=== PATIENT | female | born 1955 | race Caucasian/White ===

== ENCOUNTER 2020-01-03 12:38 | Inpatient (IN) | payer MEDICARE, BC ==
[~2020-01-03] VITALS: Ht 175.3 cm; Wt 115.7 kg
--- NOTE | 2020-01-03 12:41 | NUR ---
PT IS IN ROOM #2A. DR PROCTOR EVALUATED THE PT.
[2020-01-03] MEDS ORDERED: METOPROLOL PO (12:46)
[2020-01-03] MEDS ORDERED: WARF1TAB2 PO ×2 (12:46)
[2020-01-03 13:12] LABS: BASOPHILS # (AUTO) 0.1 K/uL (0.0-8.0); BASOPHILS % (AUTO) 0.6 % (0.0-2.0); EOSINOPHILS # (AUTO) 0.4 K/uL (0.0-0.7); EOSINOPHILS % (AUTO) 4.6 % (0.0-7.0); HEMATOCRIT 43.2 % (31.2-41.9); HEMOGLOBIN 14.4 g/dL (10.9-14.3); LYMPHOCYTES # (AUTO) 1.3 K/uL (20.0-40.0); LYMPHOCYTES % (AUTO) 14.8 % (20.5-51.5); MEAN CORPUSCULAR HEMOGLOBIN 30.6 uug (24.7-32.8); MEAN CORPUSCULAR HGB CONC 33 g/dL (32.3-35.6); MEAN CORPUSCULAR VOLUME 91.9 fL (75.5-95.3); MONOCYTES # (AUTO) 0.7 K/uL (2.0-10.0); MONOCYTES % (AUTO) 8.1 % (0.0-11.0); NEUTROPHILS # (AUTO) 6.4 K/uL (1.8-8.9); NEUTROPHILS % (AUTO) 71.9 % (38.5-71.5); PLATELET COUNT (AUTO) 122 K/uL (179-408); WHITE BLOOD COUNT (AUTO) 8.9 K/uL (3.8-11.8)
[2020-01-03 13:20] LABS: CREATININE 0.8 mg/dL (0.6-1.3); POTASSIUM 3.7 mmol/L (3.5-5.1)
[2020-01-03] MEDS ORDERED: ACETAMINOPHEN 325 MG TABLET PO PRN (15:00)
[2020-01-03] MEDS ORDERED: Z GUARD REMEDY PASTE 57 GM TUBE TOP PRN (15:00)
[2020-01-03] MEDS ORDERED: ONDANSETRON 4 MG/2 ML VIAL IV PRN (15:00)
[2020-01-03] MEDS ORDERED: HEPARIN/D5W 25000 UNITS/500 ML BAG IV ONE (15:00)
--- NOTE | 2020-01-03 16:00 | NUR ---
admitted from home via er c/o pin BLE, admitting DX DVT BLE, alert and oriented x3, c/o mild pain4/10 BLE. bedrest maintained . admission assessment initiated. Dr Ricci in and examined patient with orders.
--- NOTE | 2020-01-03 16:01 | NUR ---
REPORT WAS GIVEN TO UTILITY PIPE LAYER. PT WAS TRANSFERED TO TELEMETRY ROOM #304.
[2020-01-03 16:41] VITALS: BP 150/80
--- NOTE | 2020-01-03 17:00 | NUR ---
HEPARIN DRIP FOR DVT STARTED PER PROTOCOL
[2020-01-03] MEDS: HEPARIN/D5W DRIP 500 ML IV PRN (17:05)
--- NOTE | 2020-01-03 19:30 | NUR ---
Received patient lying in bed. AAOx3. No s/s of acute distress noted at this time. Pt is on RA. Denies SOB, pain, and discomfort at this time. Right FA IV patent and intact, infusing heparin drip per protocol. Safety measures in place and will continue to monitor.
[2020-01-03 20:20] VITALS: BP 144/67
[2020-01-03] MEDS: HYDROCODONE/APAP 5-325MG TABLET PO PRN (21:55)
--- NOTE | 2020-01-03 23:55 | NUR ---
aPTT 53.3. Per sliding scale no change to heparin drip rate. Continues at 1800 units/hr. Redraw aPTT at 0600 per protocol. Will continue to monitor.
[2020-01-04 01:02] VITALS: BP 130/61
[2020-01-04] MEDS: ZOLPIDEM 5 MG TABLET PO PRN ×2 (02:56→22:09)
[2020-01-04 05:16] VITALS: BP 136/64
[2020-01-04 06:03] LABS: BASOPHILS # (AUTO) 0.1 K/uL (0.0-8.0); BASOPHILS % (AUTO) 0.9 % (0.0-2.0); EOSINOPHILS # (AUTO) 0.5 K/uL (0.0-0.7); EOSINOPHILS % (AUTO) 7.1 % (0.0-7.0); HEMATOCRIT 38.9 % (31.2-41.9); HEMOGLOBIN 12.8 g/dL (10.9-14.3); LYMPHOCYTES # (AUTO) 1.4 K/uL (20.0-40.0); LYMPHOCYTES % (AUTO) 19.5 % (20.5-51.5); MEAN CORPUSCULAR HEMOGLOBIN 30.3 uug (24.7-32.8); MEAN CORPUSCULAR HGB CONC 33 g/dL (32.3-35.6); MEAN CORPUSCULAR VOLUME 91.9 fL (75.5-95.3); MONOCYTES # (AUTO) 0.7 K/uL (2.0-10.0); MONOCYTES % (AUTO) 9.2 % (0.0-11.0); NEUTROPHILS # (AUTO) 4.7 K/uL (1.8-8.9); NEUTROPHILS % (AUTO) 63.3 % (38.5-71.5); PLATELET COUNT (AUTO) 119 K/uL (179-408); RED BLOOD CELL COUNT(AUTO) 4.23 MIL/uL (3.63-4.92); WHITE BLOOD COUNT (AUTO) 7.4 K/uL (3.8-11.8)
[2020-01-04] MEDS: PANTOPRAZOLE SODIUM 40 MG TABLET.DR PO SCH (06:13)
[2020-01-04 06:21] LABS: CREATININE 0.8 mg/dL (0.6-1.3); MAGNESIUM 2.1 mg/dL (1.8-2.4); PHOSPHOROUS 3.8 mg/dL (2.5-4.9); POTASSIUM 3.8 mmol/L (3.5-5.1)
[2020-01-04 06:27] LABS: THYROID STIMULATING HORMONE 1.304 mIU/mL (0.358-3.740)
--- NOTE | 2020-01-04 06:36 | NUR ---
aPTT 95.3. Per sliding scale hold infusion for 1 hour started at 0636. Will resume at 0736 and per scale reduce rate by 300 units/h. New rate when resumed will be 1500 units/hour. Conversion of 30ml/h. Will endorse to oncoming staff.
[2020-01-04] MEDS: HEPARIN/D5W DRIP 500 ML IV PRN (08:57)
[2020-01-04 12:51] VITALS: BP 155/66
[2020-01-04 16:00] VITALS: BP 115/87
[2020-01-04] MEDS: HYDROCODONE/APAP 5-325MG TABLET PO PRN ×2 (17:26→22:07)
[2020-01-04 20:09] VITALS: BP 136/67
[2020-01-05 00:21] VITALS: BP 146/68
[2020-01-05] MEDS: HEPARIN/D5W DRIP 500 ML IV PRN ×2 (02:11→22:06)
[2020-01-05 04:50] VITALS: BP 106/55
[2020-01-05] MEDS: PANTOPRAZOLE SODIUM 40 MG TABLET.DR PO SCH (06:08)
[2020-01-05 06:22] LABS: BASOPHILS # (AUTO) 0.1 K/uL (0.0-8.0); EOSINOPHILS # (AUTO) 0.6 K/uL (0.0-0.7); EOSINOPHILS % (AUTO) 8.4 % (0.0-7.0); HEMATOCRIT 38.2 % (31.2-41.9); HEMOGLOBIN 12.6 g/dL (10.9-14.3); LYMPHOCYTES # (AUTO) 1.6 K/uL (20.0-40.0); LYMPHOCYTES % (AUTO) 22.1 % (20.5-51.5); MEAN CORPUSCULAR HEMOGLOBIN 30.4 uug (24.7-32.8); MEAN CORPUSCULAR HGB CONC 33 g/dL (32.3-35.6); MONOCYTES # (AUTO) 0.7 K/uL (2.0-10.0); MONOCYTES % (AUTO) 10.3 % (0.0-11.0); NEUTROPHILS # (AUTO) 4.1 K/uL (1.8-8.9); NEUTROPHILS % (AUTO) 58.2 % (38.5-71.5); PLATELET COUNT (AUTO) 147 K/uL (179-408); RED BLOOD CELL COUNT(AUTO) 4.15 MIL/uL (3.63-4.92); WHITE BLOOD COUNT (AUTO) 7.1 K/uL (3.8-11.8)
[2020-01-05 06:39] LABS: CREATININE 0.8 mg/dL (0.6-1.3); MAGNESIUM 2.2 mg/dL (1.8-2.4); PHOSPHOROUS 3.9 mg/dL (2.5-4.9); POTASSIUM 4.3 mmol/L (3.5-5.1)
--- NOTE | 2020-01-05 08:00 | NUR ---
AWAKE ALERT AND ORIENTED X3 NO SS OF ACUTE PAIN OR DISTRESS. SR ON MONITOR. CONTINUE WITH HEPARIN DRIP PER PROTOCOL
[2020-01-05 12:00] VITALS: BP 134/67
--- NOTE | 2020-01-05 13:00 | NUR ---
DR CHRIS AND DR RUSH IN FOR FOLLOW-UP SEE NOTES
--- NOTE | 2020-01-05 14:00 | NUR ---
PTT 53.8 NO CHANGE IN HEPARIN DRIP PER PROTOCOL
[2020-01-05 16:00] VITALS: BP 131/58
[2020-01-05] MEDS: WARFARIN SODIUM 5 MG TABLET PO SCH (16:36)
[2020-01-05] MEDS ORDERED: IV NORMAL SALINE 250 ML IV ONE (17:43)
[2020-01-05] MEDS ORDERED: IOHEXOL 300MG/ML 100 ML INFUS..BTL ONE (17:43)
--- NOTE | 2020-01-05 19:30 | NUR ---
RECEIVED PT AWAKE, ALERT AND ORIENTEDX4. PT IN NO ACUTE DISTRESS. IV INTACT. HEPARIN DRIP ONGOING. SAFETY AND COMFORT PROVIDED. WILL CONTINUE TO MONITOR.
[2020-01-05 20:00] VITALS: BP 149/76
[2020-01-05] MEDS: MAGNESIUM HYDROXIDE 30 ML LIQUID UDC PO PRN (21:04)
--- NOTE | 2020-01-05 23:00 | NUR ---
PT REQUESTED MEDICATION TO PROMOTE BOWEL MOVEMENT AND PREVENT CONSTIPATION. MILK OF MAGNESIA GIVEN AT 2104H.PT TOLERATED IT WELL.PT GIVEN PRUNE JUICE TO HELP PREVENT CONSTIPATION. WILL CONTINUE TO MONITOR.
[2020-01-06] VITALS: BP 135/54
[2020-01-06] MEDS: ZOLPIDEM 5 MG TABLET PO PRN (00:13)
--- NOTE | 2020-01-06 01:49 | NUR ---
PT REQUESTED FOR SLEEP MEDICATION.AMBIEN GIVEN AT 0013H . AFTER AN HOUR PT OBSERVED SLEEPING. WILL CONTINUE TO MONITOR,.
[2020-01-06 04:00] VITALS: BP 109/56
[2020-01-06] MEDS: PANTOPRAZOLE SODIUM 40 MG TABLET.DR PO SCH (06:05)
--- NOTE | 2020-01-06 06:36 | NUR ---
PT SLEPT INTERMITTENTLY. PT IN NO ACUTE DISTRESS. VITAL SIGNS STABLE. PRESCRIBED MEDICATION GIVEN AND PT TOLERATED IT WELL. SAFETY AND COMFORT PROVIDED. ALL NEEDS ARE MET. WILL ENDORSE TO INCOMING NURSE FOR CONTINUITY OF CARE.
[2020-01-06 06:39] LABS: BASOPHILS % (AUTO) 0.7 % (0.0-2.0); EOSINOPHILS # (AUTO) 0.5 K/uL (0.0-0.7); EOSINOPHILS % (AUTO) 7.3 % (0.0-7.0); HEMATOCRIT 38.8 % (31.2-41.9); HEMOGLOBIN 12.8 g/dL (10.9-14.3); LYMPHOCYTES % (AUTO) 13.9 % (20.5-51.5); MEAN CORPUSCULAR HEMOGLOBIN 30.3 uug (24.7-32.8); MEAN CORPUSCULAR HGB CONC 33 g/dL (32.3-35.6); MEAN CORPUSCULAR VOLUME 91.9 fL (75.5-95.3); MONOCYTES # (AUTO) 0.7 K/uL (2.0-10.0); MONOCYTES % (AUTO) 9.1 % (0.0-11.0); PLATELET COUNT (AUTO) 165 K/uL (179-408); RED BLOOD CELL COUNT(AUTO) 4.23 MIL/uL (3.63-4.92); WHITE BLOOD COUNT (AUTO) 7.3 K/uL (3.8-11.8)
[2020-01-06 07:22] LABS: BILIRUBIN,DIRECT 0.1 mg/dL (0.0-0.2); BILIRUBIN,TOTAL 0.5 mg/dL (0.2-1.0); CREATININE 0.7 mg/dL (0.6-1.3); MAGNESIUM 2.2 mg/dL (1.8-2.4); PHOSPHOROUS 3.2 mg/dL (2.5-4.9)
--- NOTE | 2020-01-06 07:40 | NUR ---
RECEIVED RESULTS OF PTT 54.4 NO CHANGE IN RATE WILL CONTINUE SAME RATE AND WILL REPEAT PTT IN AM PATIENT IS ALERT AND ORIENTED DENIES DISCOMFORTS CALL LIGHTS AND PERSONAL BELONGINGS ARE WITHIN EASY REACH MADE COMFORTABLE WILL CONTINUE TO OBSERVE.
[2020-01-06 11:30] VITALS: BP 134/73
--- NOTE | 2020-01-06 13:50 | NUR ---
PATIENT SEEN AND EXAMINED BY REJI TEAM TRUCK DRIVER WITH ORDERS THE PLAN IS THAT PATIENT WILL BE SEEN BY DR QURESHI ONCOLOGY/FOUNTAIN VENDING MECHANIC RELATED TO THE RESULT OF HER CT PELVIS SCAN PATIENT AWARE AND EXPRESSED UNDERSTANDING REMAIN ON HEPARIN DRIP ORDERED WITH NO S/S OF BLEEDING AT THIS TIME.
--- NOTE | 2020-01-06 15:00 | NUR ---
PATIENT IS ANXIOUS WANDERING WHEN DR QURESHI WILL BE HERE TO SEE HER SO I CALLED DR QURESHI AND LEFT HIM A MESSAGE
--- NOTE | 2020-01-06 15:33 | NUR ---
CALL RECEIVED FROM DR QURESHI STATED WILL BE HERE TONIGHT TO SEE PATIENT AND DISCUSS PLAN OF CARE PATIENT NOTIFIED.
[2020-01-06 15:36] VITALS: BP 116/70
[2020-01-06] MEDS ORDERED: LORAZEPAM 1 MG TABLET PO PRN (15:45)
[2020-01-06] MEDS: WARFARIN SODIUM 5 MG TABLET PO SCH (17:22)
[2020-01-06] MEDS: HEPARIN/D5W DRIP 500 ML IV PRN (17:22)
--- NOTE | 2020-01-06 17:40 | NUR ---
COUMADIN 5 MG GIVEN ORDERED PATIENT REMAIN ON HEPARIN DRIP AT 1300 UNITS PER HOUR WITH NO S/S OF BLEEDING QAT THIS TIME.
--- NOTE | 2020-01-06 18:45 | NUR ---
DR QURESHI HERE TO SEE PATIENT WITH NO NEW ORDERS AT THIS TIME SHE SPOKE WITH PATIENT AT LENGTH AND EXPLAINED THE PLAN OF CARE TO THE PATIENT AND SHE EXPLAINED UNDERSTANDING.
--- NOTE | 2020-01-06 19:30 | NUR ---
Received pt lying in bed AAOx4. No s/s of acute distress noted. Pt denies SOB and pain. patient monitor on. Right hand IV patent and intact. aPTT 54.4, Heparin drip infusing at 1300 units/hr. Redraw lab levels in the morning and will adjust rate accordingly. Bed locked and safety measures in place. will continue to monitor.
[2020-01-06] MEDS: MAGNESIUM HYDROXIDE 30 ML LIQUID UDC PO PRN (20:43)
[2020-01-06 22:00] VITALS: BP 156/85
[2020-01-07] VITALS: BP 132/72
[2020-01-07] MEDS: ZOLPIDEM 5 MG TABLET PO PRN (02:03)
[2020-01-07 04:00] VITALS: BP 132/76
[2020-01-07] MEDS: PANTOPRAZOLE SODIUM 40 MG TABLET.DR PO SCH (06:18)
[2020-01-07 07:22] LABS: CREATININE 0.8 mg/dL (0.6-1.3); POTASSIUM 4.1 mmol/L (3.5-5.1)
[2020-01-07 07:45] LABS: BASOPHILS % (AUTO) 0.6 % (0.0-2.0); EOSINOPHILS # (AUTO) 0.6 K/uL (0.0-0.7); EOSINOPHILS % (AUTO) 7.9 % (0.0-7.0); HEMATOCRIT 38.7 % (31.2-41.9); HEMOGLOBIN 12.9 g/dL (10.9-14.3); LYMPHOCYTES # (AUTO) 1.5 K/uL (20.0-40.0); LYMPHOCYTES % (AUTO) 20.5 % (20.5-51.5); MEAN CORPUSCULAR HEMOGLOBIN 30.6 uug (24.7-32.8); MEAN CORPUSCULAR HGB CONC 33 g/dL (32.3-35.6); MEAN CORPUSCULAR VOLUME 92.1 fL (75.5-95.3); MONOCYTES # (AUTO) 0.7 K/uL (2.0-10.0); MONOCYTES % (AUTO) 9.9 % (0.0-11.0); NEUTROPHILS # (AUTO) 4.4 K/uL (1.8-8.9); NEUTROPHILS % (AUTO) 61.1 % (38.5-71.5); PLATELET COUNT (AUTO) 196 K/uL (179-408); WHITE BLOOD COUNT (AUTO) 7.1 K/uL (3.8-11.8)
[2020-01-07 09:10] LABS: *IMMUNOGLOBULIN G, SERUM 1559 mg/dL (586-1602); IMMUNOGLOBULIN A, SERUM 187 mg/dL (87-352); IMMUNOGLOBULIN M, SERUM 165 mg/dL (26-217)
[2020-01-07 11:58] VITALS: BP 139/74
[2020-01-07 12:06] LABS: *ANTI-SCLERODERMA-70 AB <0.2 AI (0.0-0.9); *SJOGREN'S ANTI-SS-A <0.2 AI (0.0-0.9); *SJOGREN'S ANTI-SS-B <0.2 AI (0.0-0.9); *SMITH ANTIBODIES <0.2 AI (0.0-0.9); ANTI-DNA(DS) AB, QN 6 IU/mL (0-9)
[2020-01-07] MEDS: HEPARIN/D5W DRIP 500 ML IV PRN (12:44)
[2020-01-07 16:04] VITALS: BP 134/73
--- NOTE | 2020-01-07 18:00 | NUR ---
Pt stable throughout shift. No signs of bleeding. No acute distress
--- NOTE | 2020-01-07 20:00 | NUR ---
Received patient awake and alert in bed. A/Ox4. PTT 61.2 Heparin drip is at 1300units/hr, there has been no change in rate, PTT will be checked again in AM. No s/s of active bleeding noted. IV on the right hand is intact no s/s of infiltration noted. BLE edema noted right>left. Sinus Rhythm on the monitor. Patient is anxious about doing a biopsy and says she was told she might be doing it as outpatient, but she wants it to be done while here in the hospital. Explained to patient that I understand her concerns and that I will endorse to the morning shift. Patient understood and was grateful.
[2020-01-07 20:04] VITALS: BP 149/73
[2020-01-08 00:31] VITALS: BP 149/74
[2020-01-08 04:38] VITALS: BP 129/70
[2020-01-08 05:02] VITALS: BP 136/72
[2020-01-08 05:09] LABS: A/G RATIO 0.8 (0.7-1.7); ALBUMIN 3.2 g/dL (2.9-4.4); ALPHA-1-GLOBULIN 0.4 g/dL (0.0-0.4); BETA GLOBULIN 0.9 g/dL (0.7-1.3); GAMMA GLOBULIN 1.6 g/dL (0.4-1.8); GLOBULIN, TOTAL 3.9 g/dL (2.2-3.9); M-SPIKE 0.2 g/dL (Not Observed)
[2020-01-08] MEDS: PANTOPRAZOLE SODIUM 40 MG TABLET.DR PO SCH (06:15)
[2020-01-08] MEDS: HEPARIN/D5W DRIP 500 ML IV PRN (07:27)
[2020-01-08 07:32] LABS: BASOPHILS # (AUTO) 0.1 K/uL (0.0-8.0); BASOPHILS % (AUTO) 0.9 % (0.0-2.0); EOSINOPHILS # (AUTO) 0.6 K/uL (0.0-0.7); EOSINOPHILS % (AUTO) 8.1 % (0.0-7.0); HEMATOCRIT 40.2 % (31.2-41.9); HEMOGLOBIN 13.2 g/dL (10.9-14.3); LYMPHOCYTES # (AUTO) 1.5 K/uL (20.0-40.0); LYMPHOCYTES % (AUTO) 20.9 % (20.5-51.5); MEAN CORPUSCULAR HEMOGLOBIN 30.1 uug (24.7-32.8); MEAN CORPUSCULAR HGB CONC 33 g/dL (32.3-35.6); MONOCYTES # (AUTO) 0.6 K/uL (2.0-10.0); MONOCYTES % (AUTO) 9.2 % (0.0-11.0); NEUTROPHILS # (AUTO) 4.3 K/uL (1.8-8.9); NEUTROPHILS % (AUTO) 60.9 % (38.5-71.5); PLATELET COUNT (AUTO) 211 K/uL (179-408); RED BLOOD CELL COUNT(AUTO) 4.37 MIL/uL (3.63-4.92)
[2020-01-08 07:33] LABS: CREATININE 0.8 mg/dL (0.6-1.3); POTASSIUM 4.1 mmol/L (3.5-5.1)
--- NOTE | 2020-01-08 08:00 | NUR ---
Patient is AOx3. No s/s of pain or distress. occasional non-productive cough. No SOB. Patient on continuous heparin drip per protocol as planned. No signs of bleeding present. Pt is worried about results of CT scan pelvis and abdomin. Will f/u. SR on monitor.
--- NOTE | 2020-01-08 10:00 | NUR ---
Dr. Egan and Toni SENIOR CLINICAL DATA ANALYST spoke with pt and discussed plan of care. Possible DC in morning and planned biopsy as outpatient.
--- NOTE | 2020-01-08 11:20 | NUR ---
PTT 50.6 continue heparin drip per protocol.
[2020-01-08 12:00] VITALS: BP 144/71
[2020-01-08 16:00] VITALS: BP 128/70
[2020-01-08] MEDS: WARFARIN SODIUM 5 MG TABLET PO SCH (17:43)
--- NOTE | 2020-01-08 17:58 | NUR ---
continue heparin drip per protocol. Dr Morris called and spoke to pt. See Dr. Reece notes.
[2020-01-08 20:00] VITALS: BP 132/75
[2020-01-08] MEDS: MAGNESIUM HYDROXIDE 30 ML LIQUID UDC PO PRN (22:30)
[2020-01-08] MEDS: ZOLPIDEM 5 MG TABLET PO PRN (22:30)
[2020-01-09 00:04] VITALS: BP 132/78
[2020-01-09] MEDS: HEPARIN/D5W DRIP 500 ML IV PRN (03:05)
--- NOTE | 2020-01-09 03:05 | NUR ---
came back from break and night charge assisted in restarting heparin. heparin running at 26mls/hr Addendum: 01/09/20 at 0538 by JUAN POTTER RN unable to fix issue.
[2020-01-09 04:08] VITALS: BP 135/66
[2020-01-09 04:16] VITALS: BP 119/53
[2020-01-09] MEDS: PANTOPRAZOLE SODIUM 40 MG TABLET.DR PO SCH (06:10)
[2020-01-09 06:38] LABS: BASOPHILS % (AUTO) 0.7 % (0.0-2.0); EOSINOPHILS # (AUTO) 0.6 K/uL (0.0-0.7); HEMATOCRIT 40.5 % (31.2-41.9); HEMOGLOBIN 13.5 g/dL (10.9-14.3); LYMPHOCYTES # (AUTO) 1.8 K/uL (20.0-40.0); LYMPHOCYTES % (AUTO) 25.8 % (20.5-51.5); MEAN CORPUSCULAR HEMOGLOBIN 30.6 uug (24.7-32.8); MEAN CORPUSCULAR HGB CONC 33 g/dL (32.3-35.6); MEAN CORPUSCULAR VOLUME 92.1 fL (75.5-95.3); MONOCYTES # (AUTO) 0.7 K/uL (2.0-10.0); NEUTROPHILS # (AUTO) 3.8 K/uL (1.8-8.9); NEUTROPHILS % (AUTO) 55.5 % (38.5-71.5); PLATELET COUNT (AUTO) 229 K/uL (179-408); WHITE BLOOD COUNT (AUTO) 6.9 K/uL (3.8-11.8)
[2020-01-09 07:02] LABS: CREATININE 0.8 mg/dL (0.6-1.3); POTASSIUM 4.3 mmol/L (3.5-5.1)
[2020-01-09 08:00] VITALS: BP 139/69
--- NOTE | 2020-01-09 08:00 | NUR ---
Received patient on bed, awake, alert and verbally responsive. no signs of distress noted. no SOB. Afebrile. no complain of Pain or discomfort. Heparin 1300units/hr infusing on Right hand, No signs of infiltration noted. kept clean and comfortable. Patient with PT 19.5 and PTT 57.1 , No change in rate per protocol and continue heparin 1300units/hr = 26cc/hr and PT/PTT 01/10/2020 at 0600. Will continue to monitor.
[2020-01-09 12:06] LABS: BETA-2-GLYCOPROTEIN IGG/M/A < 9 (0-25)
[2020-01-09] MEDS ORDERED: ENOXAPARIN SODIUM 120 MG/0.8 ML SYRINGE SQ SCH (13:00)
[2020-01-09 14:39] VITALS: BP 143/77
[2020-01-09] MEDS ORDERED: ZOLP5TAB2 PO (15:24)
[2020-01-09] MEDS ORDERED: ENOX40DI SQ (15:24)
[2020-01-09] MEDS ORDERED: LORA-259 PO (15:24)
[2020-01-09] MEDS: WARFARIN SODIUM 5 MG TABLET PO SCH (17:05)
--- NOTE | 2020-01-09 18:36 | NUR ---
Patient is awake, alert and verbally responsive. No signs of distress noted. No SOB. No complain of pain or discomfort. Patient with order to Discharge Home today. All discharge Instructions given to patient and verbalized Understanding. Patient teaching on how to give Lovenox injections given and verbalized understanding. All belongings was signed and sent with patient. removed IV site, cardiac monitor technician and wrist band. Patient was picked up by friend via private car in stable condition.
[2020-01-09] MEDS ORDERED: ENOXAPARIN SODIUM 120 MG/0.8 ML SYRINGE SQ ONE (19:00)
[2020-01-10 11:06] LABS: PTT-LA 50.6 sec (0.0-51.9); THROMBIN NEUTRALIZATION 20.2 sec (0.0-23.0); THROMBIN TIME MIX 43.4 sec (0.0-23.0)
[2020-01-10 13:07] LABS: LUPUS INTERPRETATION Comment: (.)
== END 2020-01-09 18:25 | disposition home health service (06) | DRG 300 ==
LOC: ER 12:54 → TELE3 15:22
PROVIDERS: ADMIT Student in an Organized Health Care Education/Training Program; ATTEND Nurse Practitioner Acute Care
DX: I82.433 Acute embolism and thrombosis of popliteal vein, bilateral (principal); D68.69 Other thrombophilia; E44.0 Moderate protein-calorie malnutrition; C78.6 Secondary malignant neoplasm of retroperitoneum and peritoneum; I82.412 Acute embolism and thrombosis of left femoral vein; I82.441 Acute embolism and thrombosis of right tibial vein; I48.91 Unspecified atrial fibrillation; Z95.2 Presence of prosthetic heart valve; D69.59 Other secondary thrombocytopenia; E88.09 Other disorders of plasma-protein metabolism, not elsewhere classified; E11.9 Type 2 diabetes mellitus without complications; C76.3 Malignant neoplasm of pelvis; D47.2 Monoclonal gammopathy; Z68.37 Body mass index [BMI] 37.0-37.9, adult; Z79.01 Long term (current) use of anticoagulants
CPT/HCPCS: 36415; 71045; 71270; 82378; 82747; 82784; 83735; 84100; 84155; 84165; 84443; 85014; 85025; 85305; 85610; 85613; 85651; 85730; 86038; 86334; 93005; 93307; A4663; G0378; J1644; J1650; J7050; Q9967

== ENCOUNTER 2023-12-13 15:03 | Inpatient (IN) | payer MEDICARE, BC ==
[~2023-12-13] VITALS: Ht 172.7 cm; Wt 115.7 kg
[~2023-12-13 15:03] MED LIST: ENOX40DI SQ; LORA-259 PO; METOPROLOL PO; WARF1TAB2 PO; ZOLP5TAB2 PO
[2023-12-13 15:46] LABS: BASOPHILS % (AUTO) 0.4 % (0.0-2.0); DIFFERENTIAL COMMENT 0; EOSINOPHILS # (AUTO) 0.2 K/uL (0.0-0.7); EOSINOPHILS % (AUTO) 2.1 % (0.0-7.0); HEMATOCRIT 32.4 % (31.2-41.9); HEMOGLOBIN 10.6 g/dL (10.9-14.3); LYMPHOCYTES # (AUTO) 0.9 K/uL (0.8-4.8); LYMPHOCYTES % (AUTO) 9.1 % (20.5-51.5); MEAN CORPUSCULAR HEMOGLOBIN 29.1 uug (24.7-32.8); MEAN CORPUSCULAR HGB CONC 33 g/dL (32.3-35.6); MEAN CORPUSCULAR VOLUME 89.3 fL (75.5-95.3); MONOCYTES # (AUTO) 1.1 K/uL (0.1-1.30); NEUTROPHILS # (AUTO) 7.6 K/uL (1.8-8.9); NEUTROPHILS % (AUTO) 77.4 % (38.5-71.5); PLATELET COUNT (AUTO) 273 K/uL (179-408); RED BLOOD CELL COUNT(AUTO) 3.63 MIL/uL (3.63-4.92); RED CELL DISTRIBUTION WIDTH 15.4 % (12.3-17.7); WHITE BLOOD COUNT (AUTO) 9.8 K/uL (3.8-11.8)
[2023-12-13 16:09] LABS: ALANINE AMINOTRANSFERASE 36 U/L (14-59); ALKALINE PHOSPHATASE 161 U/L (50-136); ASPARTATE AMINOTRANSFERASE 23 U/L (15-37); BILIRUBIN,DIRECT 0.4 mg/dL (0.0-0.2); BILIRUBIN,TOTAL 1.2 mg/dL (0.2-1.0); CALCIUM 8.5 mg/dL (8.5-10.1); CARBON DIOXIDE 28 mmol/L (21-32); CHLORIDE 102 mmol/L (98-107); CREATININE 0.9 mg/dL (0.6-1.3); GLUCOSE 118 mg/dL (74-106); NT-PRO BNP 323 pg/mL (0-125); POTASSIUM 2.8 mmol/L (3.5-5.1); SODIUM SERUM 138 mmol/L (136-145); TOTAL PROTEIN, SERUM 6.7 g/dL (6.4-8.2); UREA NITROGEN, BLOOD 18 mg/dL (7-18)
[2023-12-13] MEDS: IV NORMAL SALINE 1000 ML BAG IV ONE ×2 (16:16→21:30)
[2023-12-13] MEDS ORDERED: PIPERACILLIN/TAZOBACTAM/D5W 50 ML IV ONE (16:17)
[2023-12-13] MEDS: PIPERACILLIN SODIUM/TAZOBACTAM 3.375 G in IV DEXTROSE 5% 50 ML IV ONE (16:22)
[2023-12-14] MEDS ORDERED: MAGNESIUM HYDROXIDE 30 ML LIQUID UDC PO PRN (00:45)
[2023-12-14] MEDS ORDERED: ONDANSETRON 4 MG/2 ML VIAL IV PRN (00:45)
[2023-12-14] MEDS: POTASSIUM CHLORIDE 50 ML IV SCH (01:00)
[2023-12-14] MEDS: IV LACTATED RINGERS SOLUTION 1,000 ML IV SCH (01:00)
[2023-12-14] MEDS ORDERED: PIPERACILLIN/TAZOBACTAM/D5W 50 ML IV ONE ×2 (04:25→12:27)
[2023-12-14] MEDS: PIPERACILLIN SODIUM/TAZOBACTAM 3.375 G in IV DEXTROSE 5% 50 ML IV ONE (04:25)
[2023-12-14 05:29] LABS: BASOPHILS # (AUTO) 0.1 K/UL (0.0-0.2); BASOPHILS % (AUTO) 0.9 % (0.0-2.0); EOSINOPHILS # (AUTO) 0.3 K/uL (0.0-0.7); EOSINOPHILS % (AUTO) 3.2 % (0.0-7.0); HEMATOCRIT 30.7 % (31.2-41.9); HEMOGLOBIN 9.8 g/dL (10.9-14.3); LYMPHOCYTES # (AUTO) 0.9 K/uL (0.8-4.8); LYMPHOCYTES % (AUTO) 9.9 % (20.5-51.5); MEAN CORPUSCULAR HEMOGLOBIN 28.6 uug (24.7-32.8); MEAN CORPUSCULAR HGB CONC 32 g/dL (32.3-35.6); MEAN CORPUSCULAR VOLUME 89.9 fL (75.5-95.3); MONOCYTES # (AUTO) 0.9 K/uL (0.1-1.30); MONOCYTES % (AUTO) 9.8 % (0.0-11.0); NEUTROPHILS # (AUTO) 6.8 K/uL (1.8-8.9); NEUTROPHILS % (AUTO) 76.2 % (38.5-71.5); PLATELET COUNT (AUTO) 243 K/uL (179-408); RED BLOOD CELL COUNT(AUTO) 3.41 MIL/uL (3.63-4.92); RED CELL DISTRIBUTION WIDTH 15.1 % (12.3-17.7); WHITE BLOOD COUNT (AUTO) 8.9 K/uL (3.8-11.8)
[2023-12-14 05:32] LABS: DIFFERENTIAL COMMENT 1
[2023-12-14 05:37] LABS: CALCIUM 8.2 mg/dL (8.5-10.1); CREATININE 0.7 mg/dL (0.6-1.3); POTASSIUM 3.4 mmol/L (3.5-5.1)
[2023-12-14] MEDS ORDERED: PANTOPRAZOLE SODIUM 40 MG VIAL ONE (09:04)
[2023-12-14] MEDS: PANTOPRAZOLE SODIUM 40 MG VIAL IV SCH (09:06)
[2023-12-14] MEDS ORDERED: DIATR MEGLU/DIATRIZOATE SODIUM 120 ML BOTTLE ONE (11:36)
[2023-12-14] MEDS ORDERED: DIATR MEGLU/DIATRIZOATE SODIUM 30 ML BOTTLE ONE (11:36)
[2023-12-14] MEDS: PIPERACILLIN SODIUM/TAZOBACTAM 3.375 G in IV DEXTROSE 5% 100 ML IV SCH (12:27)
[2023-12-14] MEDS: IV LACTATED RINGERS SOLUTION 1,000 ML IV PRN (13:27)
[2023-12-14 13:49] LABS: *OCCULT BLOOD STOOL NEGATIVE (NEGATIVE)
[2023-12-14 14:00] VITALS: BP 126/70; TEMP 97.8; O2SAT 96
[2023-12-14] MEDS ORDERED: PIPERACILLIN SODIUM/TAZOBACTAM 3.375 G in IV DEXTROSE 5% 50 ML IV SCH (14:00)
[2023-12-14] MEDS ORDERED: LOSA50TA39 PO (14:55)
[2023-12-14] MEDS ORDERED: ONDA4TAB5 PO (14:55)
[2023-12-14 16:36] VITALS: BP 152/69; TEMP 97.7; O2SAT 97
[2023-12-14 20:00] VITALS: BP 162/71; TEMP 97.4; O2SAT 94
[2023-12-15 06:21] LABS: BASOPHILS % (AUTO) 0.6 % (0.0-2.0); EOSINOPHILS # (AUTO) 0.3 K/uL (0.0-0.7); EOSINOPHILS % (AUTO) 3.9 % (0.0-7.0); HEMATOCRIT 29.9 % (31.2-41.9); HEMOGLOBIN 9.9 g/dL (10.9-14.3); LYMPHOCYTES # (AUTO) 0.9 K/uL (0.8-4.8); LYMPHOCYTES % (AUTO) 11.7 % (20.5-51.5); MEAN CORPUSCULAR HEMOGLOBIN 29.5 uug (24.7-32.8); MEAN CORPUSCULAR HGB CONC 33 g/dL (32.3-35.6); MEAN CORPUSCULAR VOLUME 89.5 fL (75.5-95.3); MONOCYTES # (AUTO) 0.7 K/uL (0.1-1.30); MONOCYTES % (AUTO) 9.1 % (0.0-11.0); NEUTROPHILS # (AUTO) 5.9 K/uL (1.8-8.9); NEUTROPHILS % (AUTO) 74.7 % (38.5-71.5); PLATELET COUNT (AUTO) 238 K/uL (179-408); RED BLOOD CELL COUNT(AUTO) 3.34 MIL/uL (3.63-4.92); RED CELL DISTRIBUTION WIDTH 15.6 % (12.3-17.7); WHITE BLOOD COUNT (AUTO) 7.9 K/uL (3.8-11.8)
[2023-12-15 06:33] LABS: DIFFERENTIAL COMMENT 1
[2023-12-15 06:38] LABS: MAGNESIUM 1.9 mg/dL (1.8-2.4); PHOSPHOROUS 2.7 mg/dL (2.5-4.9)
[2023-12-15 06:43] LABS: CALCIUM 8.5 mg/dL (8.5-10.1); CREATININE 0.8 mg/dL (0.6-1.3); POTASSIUM 3.2 mmol/L (3.5-5.1)
[2023-12-15 07:01] VITALS: BP 137/73; TEMP 97.9; O2SAT 95
[2023-12-15] MEDS: POTASSIUM CHLORIDE 50 ML IV SCH (10:12)
[2023-12-15] MEDS ORDERED: ASPI81TA31 PO (11:14)
[2023-12-15 11:33] VITALS: BP 157/67; TEMP 98.9; O2SAT 97
[2023-12-15] MEDS: ASPIRIN 81 MG TAB.CHEW PO SCH (13:52)
[2023-12-15] MEDS: LOSARTAN POTASSIUM 50 MG TABLET PO SCH (13:52)
[2023-12-15 16:17] VITALS: BP 139/66; TEMP 97.7; O2SAT 98
[2023-12-15 22:22] VITALS: BP 105/60; TEMP 97.8; O2SAT 94
[2023-12-16 06:55] VITALS: BP 146/65; TEMP 97.8; O2SAT 96
[2023-12-16 08:09] LABS: CALCIUM 8.1 mg/dL (8.5-10.1); CREATININE 0.7 mg/dL (0.6-1.3); POTASSIUM 3.2 mmol/L (3.5-5.1)
[2023-12-16 08:13] LABS: BASOPHILS % (AUTO) 0.4 % (0.0-2.0); EOSINOPHILS # (AUTO) 0.3 K/uL (0.0-0.7); EOSINOPHILS % (AUTO) 4.4 % (0.0-7.0); HEMATOCRIT 27.7 % (31.2-41.9); HEMOGLOBIN 9.1 g/dL (10.9-14.3); LYMPHOCYTES # (AUTO) 0.6 K/uL (0.8-4.8); LYMPHOCYTES % (AUTO) 10.5 % (20.5-51.5); MEAN CORPUSCULAR HEMOGLOBIN 29.5 uug (24.7-32.8); MEAN CORPUSCULAR HGB CONC 33 g/dL (32.3-35.6); MEAN CORPUSCULAR VOLUME 90.1 fL (75.5-95.3); MONOCYTES # (AUTO) 0.6 K/uL (0.1-1.30); MONOCYTES % (AUTO) 10.4 % (0.0-11.0); NEUTROPHILS # (AUTO) 4.5 K/uL (1.8-8.9); NEUTROPHILS % (AUTO) 74.3 % (38.5-71.5); PLATELET COUNT (AUTO) 205 K/uL (179-408); RED BLOOD CELL COUNT(AUTO) 3.07 MIL/uL (3.63-4.92); RED CELL DISTRIBUTION WIDTH 15.8 % (12.3-17.7); WHITE BLOOD COUNT (AUTO) 6.1 K/uL (3.8-11.8)
[2023-12-16] MEDS: PANTOPRAZOLE SODIUM 40 MG TABLET.DR PO SCH (08:13)
[2023-12-16 08:22] LABS: DIFFERENTIAL COMMENT 1
[2023-12-16] MEDS: POTASSIUM CHLORIDE 20 MEQ TAB.PRT.SR PO ONE (10:05)
[2023-12-16 11:34] VITALS: BP 112/64; TEMP 97.5; O2SAT 95
[2023-12-16 16:00] VITALS: BP 111/52; TEMP 98.1; O2SAT 97
[2023-12-16 22:16] VITALS: BP 119/53; TEMP 98.3; O2SAT 96
[2023-12-17 04:38] VITALS: BP 128/50; TEMP 97.7; O2SAT 95
[2023-12-17 06:40] LABS: BASOPHILS % (AUTO) 0.6 % (0.0-2.0); EOSINOPHILS # (AUTO) 0.3 K/uL (0.0-0.7); EOSINOPHILS % (AUTO) 4.9 % (0.0-7.0); HEMATOCRIT 28.5 % (31.2-41.9); HEMOGLOBIN 9.4 g/dL (10.9-14.3); LYMPHOCYTES # (AUTO) 0.8 K/uL (0.8-4.8); LYMPHOCYTES % (AUTO) 13.7 % (20.5-51.5); MEAN CORPUSCULAR HEMOGLOBIN 29.7 uug (24.7-32.8); MEAN CORPUSCULAR HGB CONC 33 g/dL (32.3-35.6); MEAN CORPUSCULAR VOLUME 89.7 fL (75.5-95.3); MONOCYTES # (AUTO) 0.6 K/uL (0.1-1.30); MONOCYTES % (AUTO) 10.8 % (0.0-11.0); NEUTROPHILS # (AUTO) 3.9 K/uL (1.8-8.9); PLATELET COUNT (AUTO) 206 K/uL (179-408); RED BLOOD CELL COUNT(AUTO) 3.18 MIL/uL (3.63-4.92); RED CELL DISTRIBUTION WIDTH 16.1 % (12.3-17.7); WHITE BLOOD COUNT (AUTO) 5.5 K/uL (3.8-11.8)
[2023-12-17 06:53] LABS: CALCIUM 8.3 mg/dL (8.5-10.1); CREATININE 0.7 mg/dL (0.6-1.3); POTASSIUM 3.6 mmol/L (3.5-5.1)
[2023-12-17 06:55] LABS: DIFFERENTIAL COMMENT 1
[2023-12-17 11:30] VITALS: BP 133/70; TEMP 98.1; O2SAT 95
[2023-12-17 16:00] VITALS: BP 130/63; TEMP 98.2; O2SAT 99
[2023-12-17] MEDS: CLOTRIMAZOLE 1% CREAM 30 GM TUBE TOP SCH (17:05)
[2023-12-17] MEDS: WARFARIN SODIUM 1 MG TABLET PO SCH (17:06)
[2023-12-17 20:17] VITALS: BP 122/57; TEMP 97.8; O2SAT 97
[2023-12-18 03:56] VITALS: BP 130/68; TEMP 97.5; O2SAT 97
[2023-12-18 06:44] LABS: BASOPHILS % (AUTO) 0.5 % (0.0-2.0); EOSINOPHILS # (AUTO) 0.3 K/uL (0.0-0.7); EOSINOPHILS % (AUTO) 4.5 % (0.0-7.0); HEMATOCRIT 28.9 % (31.2-41.9); HEMOGLOBIN 9.4 g/dL (10.9-14.3); LYMPHOCYTES # (AUTO) 0.9 K/uL (0.8-4.8); MEAN CORPUSCULAR HEMOGLOBIN 29.3 uug (24.7-32.8); MEAN CORPUSCULAR HGB CONC 33 g/dL (32.3-35.6); MEAN CORPUSCULAR VOLUME 89.9 fL (75.5-95.3); MONOCYTES # (AUTO) 0.6 K/uL (0.1-1.30); MONOCYTES % (AUTO) 8.9 % (0.0-11.0); NEUTROPHILS # (AUTO) 4.8 K/uL (1.8-8.9); NEUTROPHILS % (AUTO) 72.1 % (38.5-71.5); PLATELET COUNT (AUTO) 196 K/uL (179-408); RED BLOOD CELL COUNT(AUTO) 3.21 MIL/uL (3.63-4.92); RED CELL DISTRIBUTION WIDTH 16.4 % (12.3-17.7); WHITE BLOOD COUNT (AUTO) 6.6 K/uL (3.8-11.8)
[2023-12-18 06:54] LABS: DIFFERENTIAL COMMENT 1
[2023-12-18 07:04] LABS: CALCIUM 8.2 mg/dL (8.5-10.1); CREATININE 0.7 mg/dL (0.6-1.3); POTASSIUM 3.8 mmol/L (3.5-5.1)
[2023-12-18] MEDS: ENOXAPARIN SODIUM 40 MG/0.4 ML DISP.SYRIN SQ SCH (10:52)
[2023-12-18 11:33] VITALS: BP 128/66; TEMP 98.1; O2SAT 97
[2023-12-18 16:00] VITALS: BP 114/53; TEMP 97.3; O2SAT 96
[2023-12-18 19:00] VITALS: BP 121/61; TEMP 97.6; O2SAT 96
[2023-12-19 06:00] VITALS: BP 137/67; TEMP 97.5; O2SAT 95
[2023-12-19 06:49] LABS: CALCIUM 8.6 mg/dL (8.5-10.1); CREATININE 0.6 mg/dL (0.6-1.3); POTASSIUM 3.9 mmol/L (3.5-5.1)
[2023-12-19] MEDS: REMEDY ESSENTIAL ZINC PASTE 113 GM TP PRN (08:38)
[2023-12-19 11:06] VITALS: BP 135/66; TEMP 98.1; O2SAT 97
[2023-12-19] MEDS ORDERED: WARFARIN SODIUM 5 MG TABLET PO SCH (17:00)
== END 2023-12-19 13:30 | disposition home health service (06) | DRG 389 ==
LOC: ER 15:03 → TRANSITION 12-14 03:02 → MEDSURG3 12-14 13:15
PROVIDERS: ATTEND Nurse Practitioner Acute Care
PROC: 5A09357 Assistance with Respiratory Ventilation, Less than 24 Consecutive Hours, Continuous Positive Airway Pressure (ICD-10-PCS; principal; 2023-12-15)
DX: K56.609 Unspecified intestinal obstruction, unspecified as to partial versus complete obstruction (principal); C18.9 Malignant neoplasm of colon, unspecified; D68.59 Other primary thrombophilia; Q89.09 Congenital malformations of spleen; L97.811 Non-pressure chronic ulcer of other part of right lower leg limited to breakdown of skin; M70.41 Prepatellar bursitis, right knee; S80.01XA Contusion of right knee, initial encounter; W19.XXXA Unspecified fall, initial encounter; Y92.89 Other specified places as the place of occurrence of the external cause; Z95.2 Presence of prosthetic heart valve; Z79.01 Long term (current) use of anticoagulants; Z90.710 Acquired absence of both cervix and uterus; Z85.42 Personal history of malignant neoplasm of other parts of uterus; G47.33 Obstructive sleep apnea (adult) (pediatric); Z86.718 Personal history of other venous thrombosis and embolism; I89.0 Lymphedema, not elsewhere classified; E66.9 Obesity, unspecified; Z68.38 Body mass index [BMI] 38.0-38.9, adult; I48.91 Unspecified atrial fibrillation; K80.20 Calculus of gallbladder without cholecystitis without obstruction; E87.6 Hypokalemia; Z85.038 Personal history of other malignant neoplasm of large intestine; Z79.60 Long term (current) use of unspecified immunomodulators and immunosuppressants; N28.89 Other specified disorders of kidney and ureter; R94.8 Abnormal results of function studies of other organs and systems; R73.03 Prediabetes
CPT/HCPCS: 36415; 71045; 73560; 74018; 74250; 83605; 83690; 83735; 84100; 84484; 85025; 85610; 85730; 87040; 93005; 94660; A4663; G0378; J1650; J2470; J2543; J3480; J7040; J7120; Q9963

== ENCOUNTER 2025-01-25 15:46 | Inpatient (IN) | payer MEDICARE, BC ==
[~2025-01-25] VITALS: Ht 172.7 cm; Wt 108.4 kg
[2025-01-25 08:40] VITALS: BP 127/57; TEMP 97.7; O2SAT 93
[~2025-01-25 15:46] MED LIST changes: +ASPI81TA31 PO; -ENOX40DI SQ; -LORA-259 PO; +LOSA50TA39 PO; -METOPROLOL PO; +ONDA4TAB5 PO; +PIPERACILLIN SODIUM/TAZOBACTAM 3.375 G in IV DEXTROSE 5% 50 ML IV ONE; -ZOLP5TAB2 PO
[2025-01-25 16:20] LABS: PLATELET COUNT (AUTO) 104 K/uL (179-408); RED BLOOD CELL COUNT(AUTO) 3.18 MIL/uL (3.63-4.92); RED CELL DISTRIBUTION WIDTH 16.4 % (12.3-17.7); WHITE BLOOD COUNT (AUTO) 6.4 K/uL (3.8-11.8)
[2025-01-25] MEDS: IV NORMAL SALINE 1000 ML BAG IV ONE (16:21)
[2025-01-25 16:26] LABS: CREATININE 0.7 mg/dL (0.6-1.3); SODIUM SERUM 141.0 mmol/L (136-145); UREA NITROGEN, BLOOD 18.0 mg/dL (7-18)
[2025-01-25 16:32] LABS: ASPARTATE AMINOTRANSFERASE 20.0 U/L (15-37); TOTAL PROTEIN, SERUM 6.3 g/dL (6.4-8.2)
[2025-01-25] MEDS ORDERED: IOHEXOL 300MG/ML 100 ML INFUS..BTL ONE (17:22)
[2025-01-25] MEDS ORDERED: PIPERACILLIN/TAZOBACTAM/D5W 50 ML IV ONE (18:34)
[2025-01-25] MEDS: PIPERACILLIN SODIUM/TAZOBACTAM 3.375 G in IV DEXTROSE 5% 50 ML IV ONE (18:36)
[2025-01-25 18:37] VITALS: BP 122/66
[2025-01-25] MEDS ORDERED: POTA-10 PO (19:22)
[2025-01-25] MEDS ORDERED: FURO20TA4 PO (19:22)
[2025-01-25] MEDS ORDERED: CHOL500062 PO (19:22)
[2025-01-25] MEDS ORDERED: WARF-58 PO (20:41)
[2025-01-25] MEDS ORDERED: WARF7.5T49 PO (20:41)
[2025-01-25] MEDS ORDERED: ONDANSETRON 4 MG/2 ML VIAL IV PRN (22:00)
[2025-01-25] MEDS ORDERED: REMEDY ESSENTIAL ZINC PASTE 113 GM TP PRN (22:00)
[2025-01-25] MEDS ORDERED: ACETAMINOPHEN 325 MG TABLET PO PRN (22:00)
[2025-01-25] MEDS: POTASSIUM CHLORIDE 20 MEQ TAB.PRT.SR PO ONE (22:37)
[2025-01-25] MEDS: IV LACTATED RINGERS SOLUTION 1,000 ML IV SCH (22:37)
[2025-01-25] MEDS ORDERED: PIPERACILLIN SODIUM/TAZOBACTAM 3.375 G in IV DEXTROSE 5% 50 ML IV ONE (22:45)
[2025-01-26] MEDS ORDERED: PIPERACILLIN/TAZOBACTAM/D5W 50 ML IV ONE (00:44)
[2025-01-26 00:49] VITALS: BP 123/59; TEMP 97.6; O2SAT 92
[2025-01-26] MEDS: PIPERACILLIN SODIUM/TAZOBACTAM 3.375 G in IV DEXTROSE 5% 50 ML IV ONE (01:35)
[2025-01-26 03:36] LABS: *OCCULT BLOOD STOOL NEGATIVE (NEGATIVE)
[2025-01-26] MEDS ORDERED: PIPERACILLIN SODIUM/TAZOBACTAM 3.375 G in IV DEXTROSE 5% 50 ML IV SCH (06:00)
[2025-01-26] MEDS: PANTOPRAZOLE SODIUM 40 MG TABLET.DR PO SCH (06:17)
[2025-01-26 06:32] VITALS: BP 127/56; TEMP 98; O2SAT 97
[2025-01-26 07:01] LABS: PLATELET COUNT (AUTO) 94 K/uL (179-408); RED BLOOD CELL COUNT(AUTO) 2.86 MIL/uL (3.63-4.92); RED CELL DISTRIBUTION WIDTH 16.3 % (12.3-17.7); WHITE BLOOD COUNT (AUTO) 5.7 K/uL (3.8-11.8)
[2025-01-26 07:16] LABS: ASPARTATE AMINOTRANSFERASE 17.0 U/L (15-37); CREATININE 0.6 mg/dL (0.6-1.3); SODIUM SERUM 141.0 mmol/L (136-145); TOTAL PROTEIN, SERUM 5.7 g/dL (6.4-8.2); UREA NITROGEN, BLOOD 14.0 mg/dL (7-18)
[2025-01-26] MEDS: LOSARTAN POTASSIUM 50 MG TABLET PO SCH (08:26)
[2025-01-26] MEDS ORDERED: DIATR MEGLU/DIATRIZOATE SODIUM 120 ML BOTTLE ONE (09:09)
[2025-01-26] MEDS ORDERED: DIATR MEGLU/DIATRIZOATE SODIUM 30 ML BOTTLE ONE (09:09)
[2025-01-26 09:53] LABS: EOSINOPHILS % (MANUAL) 3 % (0-8); LYMPHOCYTES % (MANUAL) 14 % (20-40); MONOCYTES % (MANUAL) 5 % (2-10); NEUTROPHILS % (MANUAL) 78 % (42-75); PLATELET ESTIMATE DECREASED
[2025-01-26] MEDS ORDERED: CHOL10005 PO (10:06)
[2025-01-26] MEDS ORDERED: ASPI-1420 PO (10:09)
[2025-01-26] MEDS: PIPERACILLIN SODIUM/TAZOBACTAM 3.375 G in IV DEXTROSE 5% 100 ML IV SCH (10:14)
[2025-01-26] MEDS: MAGNESIUM OXIDE 400 MG TABLET PO ONE (11:20)
[2025-01-26 12:00] VITALS: BP 135/61; TEMP 97.7; O2SAT 94
[2025-01-26 16:00] VITALS: BP 122/53; TEMP 97.5; O2SAT 94
[2025-01-26] MEDS: WARFARIN SODIUM 5 MG TABLET PO SCH (16:20)
[2025-01-26] MEDS: CLOTRIMAZOLE 1% CREAM 30 GM TUBE TOP SCH (16:26)
[2025-01-26 19:45] VITALS: BP 112/60; TEMP 97.5; O2SAT 92
[2025-01-27 05:10] VITALS: BP 158/94; TEMP 97.9; O2SAT 92
[2025-01-27 12:00] VITALS: BP 125/64; TEMP 97.8; O2SAT 95
[2025-01-27 16:13] VITALS: BP_SYST 120; BP_SYST 161; BP_DIAS 104; BP_DIAS 66; TEMP 97.7; TEMP 97.8; O2SAT 94; O2SAT 98
[2025-01-27 19:20] VITALS: BP 119/69; TEMP 97.8; O2SAT 94
[2025-01-27] MEDS: IV LACTATED RINGERS SOLUTION 1,000 ML IV PRN (21:06)
[2025-01-28 06:39] VITALS: BP 136/70; TEMP 97.4; O2SAT 94
[2025-01-28 06:54] LABS: PLATELET COUNT (AUTO) 121 K/uL (179-408); RED BLOOD CELL COUNT(AUTO) 2.93 MIL/uL (3.63-4.92); RED CELL DISTRIBUTION WIDTH 16.2 % (12.3-17.7); WHITE BLOOD COUNT (AUTO) 9.4 K/uL (3.8-11.8)
[2025-01-28 07:42] LABS: IRON, SERUM 21.0 ug/dL (50-175)
[2025-01-28 08:18] LABS: ASPARTATE AMINOTRANSFERASE 21.0 U/L (15-37); CREATININE 0.9 mg/dL (0.6-1.3); SODIUM SERUM 134.0 mmol/L (136-145); TOTAL PROTEIN, SERUM 5.7 g/dL (6.4-8.2); UREA NITROGEN, BLOOD 4.0 mg/dL (7-18)
[2025-01-28 09:28] LABS: EOSINOPHILS % (MANUAL) 4 % (0-8); LYMPHOCYTES % (MANUAL) 12 % (20-40); MONOCYTES % (MANUAL) 11 % (2-10); NEUTROPHILS % (MANUAL) 73 % (42-75); PLATELET ESTIMATE DECREASED
[2025-01-28 11:07] VITALS: BP 124/50; TEMP 98.4; O2SAT 94
[2025-01-28] MEDS: MAGNESIUM SULFATE/D5W 100 ML IV SCH (12:24)
[2025-01-28] MEDS: POTASSIUM CHLORIDE 20 MEQ POWDER PACKET PO ONE ×2 (12:24→17:19)
[2025-01-28] MEDS ORDERED: PANT40TA49 PO (15:36)
[2025-01-28] MEDS ORDERED: CLOT30CR24 TOP (15:36)
[2025-01-28] MEDS ORDERED: POTA10CA43 PO (15:36)
[2025-01-28] MEDS ORDERED: MAGN400C PO (15:36)
[2025-01-28] MEDS ORDERED: PIPE3.379 IV (15:36)
[2025-01-28] MEDS ORDERED: ACET325T53 PO (15:36)
[2025-01-28] MEDS ORDERED: ONDA4VIA23 IV (15:36)
[2025-01-28] MEDS ORDERED: MENT113O TP (15:36)
[2025-01-28] MEDS ORDERED: WARFARIN SODIUM 5 MG TABLET PO SCH (17:00)
[2025-01-29] MEDS ORDERED: CLOT30CR24 TP (12:53)
== END 2025-01-28 19:00 | DRG 372 ==
LOC: ER 15:53 → TELE3 19:35 → MEDSURG3 01-26 03:00
PROVIDERS: ADMIT Nurse Practitioner Acute Care; ATTEND Nurse Practitioner Acute Care
PROC: 5A09357 Assistance with Respiratory Ventilation, Less than 24 Consecutive Hours, Continuous Positive Airway Pressure (ICD-10-PCS; principal; 2025-01-25)
DX: A04.9 Bacterial intestinal infection, unspecified (principal); C18.9 Malignant neoplasm of colon, unspecified; K56.7 Ileus, unspecified; C79.82 Secondary malignant neoplasm of genital organs; C78.02 Secondary malignant neoplasm of left lung; C78.01 Secondary malignant neoplasm of right lung; E66.01 Morbid (severe) obesity due to excess calories; Z68.36 Body mass index [BMI] 36.0-36.9, adult; D69.6 Thrombocytopenia, unspecified; I89.0 Lymphedema, not elsewhere classified; D63.8 Anemia in other chronic diseases classified elsewhere; Z92.21 Personal history of antineoplastic chemotherapy; Z90.710 Acquired absence of both cervix and uterus; Z95.2 Presence of prosthetic heart valve; G47.33 Obstructive sleep apnea (adult) (pediatric); E87.6 Hypokalemia; I10 Essential (primary) hypertension; Z85.42 Personal history of malignant neoplasm of other parts of uterus; Z79.60 Long term (current) use of unspecified immunomodulators and immunosuppressants; Z79.01 Long term (current) use of anticoagulants; Z15.09 Genetic susceptibility to other malignant neoplasm
CPT/HCPCS: 36415; 70030-TC; 74250; 83550; 83605; 83735; 84100; 84443; 85025; 85610; 85730; 87040; 87046; 89055; A4606; A4663; A6213; G0378; J2543; J3475; J3490; J7040; J7120; Q9963; Q9967

== ENCOUNTER 2025-01-28 12:09 | Inpatient (IN) | payer MEDICARE, BC ==
[~2025-01-28] VITALS: Ht 172.7 cm; Wt 108.4 kg
[~2025-01-28 12:09] MED LIST changes: +ASPI-1420 PO; -ASPI81TA31 PO; +CHOL10005 PO; +FURO20TA4 PO; -ONDA4TAB5 PO; -PIPERACILLIN SODIUM/TAZOBACTAM 3.375 G in IV DEXTROSE 5% 50 ML IV ONE; +POTA-10 PO; +WARF-58 PO; -WARF1TAB2 PO; +WARF7.5T49 PO
[2025-01-28 13:35] VITALS: BP 124/50; TEMP 98.4
[2025-01-28 14:07] VITALS: BP 124/50; TEMP 98.4
[2025-01-28] MEDS ORDERED: MAGN400C PO (15:36)
[2025-01-28] MEDS ORDERED: PIPE3.379 IV (15:36)
[2025-01-28] MEDS ORDERED: ACET325T53 PO (15:36)
[2025-01-28] MEDS ORDERED: ONDA4VIA23 IV (15:36)
[2025-01-28] MEDS ORDERED: MENT113O TP (15:36)
[2025-01-28] MEDS ORDERED: POTA10CA43 PO (15:36)
[2025-01-28] MEDS ORDERED: PANT40TA49 PO (15:36)
[2025-01-28] MEDS ORDERED: CLOT30CR24 TOP (15:36)
[2025-01-28 18:50] VITALS: BP 99/51; TEMP 97.8; O2SAT 96
[2025-01-28] MEDS ORDERED: ONDANSETRON 4 MG/2 ML VIAL IV PRN (19:30)
[2025-01-28] MEDS ORDERED: ACETAMINOPHEN 325 MG TABLET-SA PATIENTS-PAIN ONLY PO PRN (19:30)
[2025-01-28] MEDS ORDERED: CALMOSEPTINE 113 GM OINTMENT TP PRN (19:30)
[2025-01-28 19:49] VITALS: BP 101/45; TEMP 97.4; O2SAT 95
[2025-01-28] MEDS: MAGNESIUM OXIDE 400 MG TABLET PO SCH (20:31)
[2025-01-28] MEDS ORDERED: PIPERACILLIN/TAZOBACTAM/D5W 50 ML IV ONE (22:28)
[2025-01-28] MEDS: PIPERACILLIN SODIUM/TAZOBACTAM 3.375 G in IV DEXTROSE 5% 50 ML IV SCH (22:59)
[2025-01-29 04:13] VITALS: BP 105/58; TEMP 97.3; O2SAT 93
[2025-01-29] MEDS ORDERED: REMEDY ESSENTIAL ZINC PASTE 113 GM TP PRN (06:00)
[2025-01-29] MEDS ORDERED: ACETAMINOPHEN 325 MG TABLET PO PRN (06:00)
[2025-01-29] MEDS ORDERED: PIPERACILLIN SODIUM/TAZOBACTAM 3.375 G in IV DEXTROSE 5% 50 ML IV SCH (06:00)
[2025-01-29] MEDS ORDERED: PIPERACILLIN/TAZOBACTAM/D5W 50 ML IV ONE (06:06)
[2025-01-29] MEDS: PANTOPRAZOLE SODIUM 40 MG TABLET.DR PO SCH (06:18)
[2025-01-29] MEDS: PIPERACILLIN SODIUM/TAZOBACTAM 3.375 G in IV DEXTROSE 5% 100 ML IV SCH (06:19)
[2025-01-29 08:00] VITALS: BP 108/62; TEMP 98.3; O2SAT 96
[2025-01-29 08:19] LABS: ASPARTATE AMINOTRANSFERASE 36.0 U/L (15-37); CREATININE 0.9 mg/dL (0.6-1.3); SODIUM SERUM 137.0 mmol/L (136-145); TOTAL PROTEIN, SERUM 5.5 g/dL (6.4-8.2); UREA NITROGEN, BLOOD 6.0 mg/dL (7-18)
[2025-01-29 08:25] LABS: PLATELET COUNT (AUTO) 142 K/uL (179-408); RED BLOOD CELL COUNT(AUTO) 2.64 MIL/uL (3.63-4.92); RED CELL DISTRIBUTION WIDTH 16.5 % (12.3-17.7); WHITE BLOOD COUNT (AUTO) 18.7 K/uL (3.8-11.8)
[2025-01-29] MEDS: CLOTRIMAZOLE 1% CREAM 30 GM TUBE TOP SCH (09:00)
[2025-01-29] MEDS: LOSARTAN POTASSIUM 50 MG TABLET PO SCH (09:00)
[2025-01-29] MEDS: POTASSIUM CHLORIDE 10 MEQ TAB.PRT.SR PO SCH (09:52)
[2025-01-29] MEDS ORDERED: POTASSIUM CHLORIDE 10 MEQ TAB.PRT.SR PO ONE (12:00)
[2025-01-29] MEDS ORDERED: POTASSIUM CHLORIDE 20 MEQ POWDER PACKET GT ONE (12:50)
[2025-01-29] MEDS: POTASSIUM CHLORIDE 20 MEQ POWDER PACKET PO ONE (12:53)
[2025-01-29] MEDS ORDERED: CLOT30CR24 TP (12:53)
[2025-01-29] MEDS: WARFARIN SODIUM 2 MG TABLET PO SCH (17:12)
[2025-01-29] MEDS: ACIDOPHILUS/BULGARICUS CHEW TAB PO SCH (17:13)
[2025-01-29 19:31] VITALS: BP 119/58; TEMP 98.1; O2SAT 96
[2025-01-29] MEDS ORDERED: MIDODRINE HCL 5 MG TABLET PO PRN (20:15)
[2025-01-29 20:38] VITALS: BP 113/47; TEMP 97.9; O2SAT 92
[2025-01-30 07:46] LABS: PLATELET COUNT (AUTO) 137 K/uL (179-408); RED BLOOD CELL COUNT(AUTO) 2.55 MIL/uL (3.63-4.92); RED CELL DISTRIBUTION WIDTH 16.7 % (12.3-17.7); WHITE BLOOD COUNT (AUTO) 16.9 K/uL (3.8-11.8)
[2025-01-30 07:53] LABS: ASPARTATE AMINOTRANSFERASE 28.0 U/L (15-37); CREATININE 0.8 mg/dL (0.6-1.3); SODIUM SERUM 137.0 mmol/L (136-145); TOTAL PROTEIN, SERUM 5.7 g/dL (6.4-8.2); UREA NITROGEN, BLOOD 8.0 mg/dL (7-18)
[2025-01-30 08:03] VITALS: BP 104/53; TEMP 98.9; O2SAT 96
[2025-01-30 08:42] LABS: BAND % (MANUAL) 8 % (0-10); LYMPHOCYTES % (MANUAL) 10 % (20-40); MONOCYTES % (MANUAL) 8 % (2-10); MYELOCYTES % 2 % (0-0); NEUTROPHILS % (MANUAL) 70 % (42-75); PLATELET ESTIMATE DECREASED; PROMYELOCYTES % 1 %
[2025-01-30] MEDS: MAGNESIUM OXIDE 400 MG TABLET PO ONE (11:29)
[2025-01-30] MEDS: SOD FERRIC GLUC COMPLX/SUCROSE 125 MG in IV NORMAL SALINE 100 ML IV SCH (14:31)
[2025-01-30 15:46] VITALS: BP 123/56; TEMP 98.1; O2SAT 94
[2025-01-30 19:48] VITALS: BP 111/60; TEMP 97.5; O2SAT 95
[2025-01-30 20:28] LABS: *BILIRUBIN,URIN NEGATIVE (NEGATIVE); *BLOOD, URINE NEGATIVE (NEGATIVE); *CLARITY,URINE CLEAR (CLEAR); *COLOR,URINE YELLOW (YELLOW); *KETONES,URINE NEGATIVE (NEGATIVE); *PROTEIN,URINE NEGATIVE (NEGATIVE); *UROBILINOGEN,URINE 0.2 E.U./dl (NORMAL); LEUKOCYTE ESTERASE ,URINE NEGATIVE (NEGATIVE); NITRITE, URINE NEGATIVE (NEGATIVE); UGLUCOSE NEGATIVE (NEGATIVE)
[2025-01-30] MEDS: TEMAZEPAM 7.5 MG CAPSULE PO PRN (20:40)
[2025-01-31 05:12] VITALS: BP 126/60; TEMP 97.4; O2SAT 95
[2025-01-31 16:02] VITALS: BP 121/59; TEMP 98.4; O2SAT 97
[2025-01-31] MEDS ORDERED: WARFARIN SODIUM 5 MG TABLET PO SCH (17:00)
[2025-01-31 19:44] VITALS: BP 125/63; TEMP 98.6; O2SAT 93
[2025-02-01 04:31] VITALS: O2SAT 96
[2025-02-01 05:09] VITALS: BP 110/70; TEMP 98.1; O2SAT 94
[2025-02-01] MEDS ORDERED: PROTEIN SUPPLEMENT (PROSTAT) 30 ML LIQUID PO SCH (10:15)
[2025-02-01 10:51] LABS: PLATELET COUNT (AUTO) 178 K/uL (179-408); RED BLOOD CELL COUNT(AUTO) 2.58 MIL/uL (3.63-4.92); RED CELL DISTRIBUTION WIDTH 16.9 % (12.3-17.7); WHITE BLOOD COUNT (AUTO) 13.7 K/uL (3.8-11.8)
[2025-02-01 11:01] LABS: CREATININE 0.7 mg/dL (0.6-1.3); SODIUM SERUM 137.0 mmol/L (136-145); UREA NITROGEN, BLOOD 10.0 mg/dL (7-18)
[2025-02-01] MEDS: PROTEIN SUPPLEMENT (PROSTAT) 30 ML LIQUID PO SCH (11:32)
[2025-02-01 13:25] LABS: *OCCULT BLOOD STOOL NEGATIVE (NEGATIVE)
[2025-02-01] MEDS: POTASSIUM CHLORIDE 20 MEQ TAB.PRT.SR PO ONE (16:53)
[2025-02-01] MEDS: MAGNESIUM OXIDE 400 MG TABLET PO ONE (16:53)
[2025-02-01 17:00] VITALS: BP 126/62; TEMP 98.1; O2SAT 95
[2025-02-01 21:59] VITALS: BP 133/68; TEMP 98.7; O2SAT 94
[2025-02-02 06:34] VITALS: BP 128/64; TEMP 98.7; O2SAT 97
[2025-02-02 07:45] VITALS: BP 119/63; TEMP 97.6; O2SAT 95
[2025-02-02 15:09] VITALS: BP 119/48; TEMP 98.4; O2SAT 98
[2025-02-02 15:11] VITALS: O2SAT 95
[2025-02-02 19:19] VITALS: BP 113/64; TEMP 97.6; O2SAT 95
[2025-02-03 04:43] VITALS: O2SAT 96
[2025-02-03 05:42] VITALS: BP 122/90; TEMP 98.6; O2SAT 93
[2025-02-03 07:32] VITALS: BP 127/61; TEMP 98.2; O2SAT 95
[2025-02-03 07:40] LABS: PLATELET COUNT (AUTO) 193 K/uL (179-408); RED CELL DISTRIBUTION WIDTH 17.3 % (12.3-17.7); WHITE BLOOD COUNT (AUTO) 11.6 K/uL (3.8-11.8)
[2025-02-03 07:45] LABS: RED BLOOD CELL COUNT(AUTO) 2.37 MIL/uL (3.63-4.92)
[2025-02-03 07:47] LABS: ASPARTATE AMINOTRANSFERASE 23.0 U/L (15-37); CREATININE 0.5 mg/dL (0.6-1.3); SODIUM SERUM 138.0 mmol/L (136-145); TOTAL PROTEIN, SERUM 5.7 g/dL (6.4-8.2); UREA NITROGEN, BLOOD 10.0 mg/dL (7-18)
[2025-02-03] MEDS: MAGNESIUM OXIDE 400 MG TABLET PO ONE (11:33)
[2025-02-03 12:00] VITALS: BP 121/66; TEMP 97.8; O2SAT 98
[2025-02-03 15:30] VITALS: O2SAT 97
[2025-02-03] MEDS: WARFARIN SODIUM 5 MG TABLET PO SCH (17:35)
[2025-02-03 21:51] VITALS: BP 116/60; TEMP 99.2; O2SAT 96
[2025-02-04 06:06] VITALS: O2SAT 97
[2025-02-04 06:33] VITALS: BP 116/62; TEMP 98.4; O2SAT 95
[2025-02-04 07:44] LABS: CREATININE 0.6 mg/dL (0.6-1.3); SODIUM SERUM 138.0 mmol/L (136-145); UREA NITROGEN, BLOOD 12.0 mg/dL (7-18)
[2025-02-04 08:00] VITALS: BP 130/67; TEMP 97.8; O2SAT 96
[2025-02-04] MEDS: MAGNESIUM OXIDE 400 MG TABLET PO ONE (10:13)
[2025-02-04 15:20] VITALS: O2SAT 96
[2025-02-04 16:00] VITALS: BP 130/52; TEMP 98.2; O2SAT 97
[2025-02-04] MEDS: WARFARIN SODIUM 2 MG TABLET PO SCH (17:49)
[2025-02-04 19:47] VITALS: BP 120/57; TEMP 98.2; O2SAT 95
[2025-02-04 22:19] LABS: *BILIRUBIN,URIN NEGATIVE (NEGATIVE); *BLOOD, URINE NEGATIVE (NEGATIVE); *CLARITY,URINE CLEAR (CLEAR); *COLOR,URINE YELLOW (YELLOW); *KETONES,URINE NEGATIVE (NEGATIVE); *PROTEIN,URINE TRACE (NEGATIVE); *UROBILINOGEN,URINE 0.2 E.U./dl (NORMAL); LEUKOCYTE ESTERASE ,URINE NEGATIVE (NEGATIVE); NITRITE, URINE NEGATIVE (NEGATIVE); UGLUCOSE NEGATIVE (NEGATIVE)
[2025-02-04 22:35] LABS: SQUAMOUS EPITHELIAL CELL,UR FEW /HPF (NONE SEEN)
[2025-02-05 04:29] VITALS: BP 128/69; TEMP 99.4; O2SAT 96
[2025-02-05 07:35] LABS: PLATELET COUNT (AUTO) 243 K/uL (179-408); RED CELL DISTRIBUTION WIDTH 17.8 % (12.3-17.7); WHITE BLOOD COUNT (AUTO) 9.2 K/uL (3.8-11.8)
[2025-02-05 07:46] LABS: RED BLOOD CELL COUNT(AUTO) 2.33 MIL/uL (3.63-4.92)
[2025-02-05 14:44] VITALS: O2SAT 96
[2025-02-05 16:16] VITALS: BP 121/63; TEMP 97.9; O2SAT 97
[2025-02-05] MEDS ORDERED: WARFARIN SODIUM 2 MG TABLET PO SCH (17:00)
[2025-02-05 19:48] VITALS: BP 110/71; TEMP 98.5; O2SAT 98
[2025-02-05] MEDS: MIRALAX 17 GM POWD.PACK PO PRN (20:35)
[2025-02-06 04:37] VITALS: BP 117/67; TEMP 97.5; O2SAT 92
[2025-02-06 08:00] VITALS: BP 127/64; TEMP 97.9; O2SAT 94
[2025-02-06 11:33] VITALS: O2SAT 96
[2025-02-06 16:08] VITALS: BP 118/61; TEMP 98.2; O2SAT 95
[2025-02-06 19:12] VITALS: BP 132/67; TEMP 97.9; O2SAT 95
[2025-02-07 05:12] VITALS: BP 129/69; TEMP 98.4; O2SAT 95
[2025-02-07 06:02] VITALS: O2SAT 96
[2025-02-07 08:03] VITALS: BP 120/69; TEMP 98.1; O2SAT 93
[2025-02-07 10:00] VITALS: O2SAT 97
[2025-02-07 15:41] VITALS: BP 124/63; TEMP 98.7; O2SAT 96
[2025-02-07] MEDS: WARFARIN SODIUM 2 MG TABLET PO ONE (16:32)
[2025-02-07 19:46] VITALS: BP 128/68; TEMP 98.9; O2SAT 92
[2025-02-08 04:24] VITALS: BP 132/71; TEMP 98; O2SAT 95
[2025-02-08 07:44] LABS: CREATININE 0.7 mg/dL (0.6-1.3); SODIUM SERUM 139.0 mmol/L (136-145); UREA NITROGEN, BLOOD 17.0 mg/dL (7-18)
[2025-02-08 08:00] VITALS: BP 121/60; TEMP 97.7; O2SAT 96
[2025-02-08 12:00] VITALS: BP 130/66; TEMP 97.8; O2SAT 98
[2025-02-08 16:00] VITALS: BP 124/65; TEMP 97.8; O2SAT 96
[2025-02-08] MEDS: NITROFURANTOIN/NITROFURAN MAC 100 MG CAPSULE PO SCH (18:25)
[2025-02-08 19:11] VITALS: BP 130/67; TEMP 97.9; O2SAT 94
[2025-02-09 04:12] VITALS: O2SAT 95
[2025-02-09 05:11] VITALS: BP 124/67; TEMP 97.5; O2SAT 95
[2025-02-09 07:31] VITALS: BP 128/65; TEMP 98.5; O2SAT 95
[2025-02-09 07:50] LABS: PLATELET COUNT (AUTO) 271 K/uL (179-408); RED CELL DISTRIBUTION WIDTH 17.9 % (12.3-17.7); WHITE BLOOD COUNT (AUTO) 11.0 K/uL (3.8-11.8)
[2025-02-09 08:04] LABS: RED BLOOD CELL COUNT(AUTO) 2.31 MIL/uL (3.63-4.92)
[2025-02-09 08:27] LABS: CREATININE 0.7 mg/dL (0.6-1.3); SODIUM SERUM 140.0 mmol/L (136-145); UREA NITROGEN, BLOOD 20.0 mg/dL (7-18)
[2025-02-09] MEDS ORDERED: NITR100C11 PO (11:08)
[2025-02-09] MEDS ORDERED: CLOT30CR24 TOP (11:08)
[2025-02-09] MEDS ORDERED: PROT30LI PO (11:08)
[2025-02-09] MEDS ORDERED: WARF-68 PO (11:08)
[2025-02-09] MEDS ORDERED: MAGN400T30 PO (11:08)
[2025-02-09] MEDS ORDERED: ACID1TAB4 PO (11:08)
[2025-02-09] MEDS ORDERED: MIDO5TAB4 PO (11:08)
[2025-02-09] MEDS ORDERED: POTA10CA43 PO (11:08)
[2025-02-09] MEDS ORDERED: WARF-58 PO (11:08)
[2025-02-09] MEDS ORDERED: WARFARIN SODIUM 5 MG TABLET PO SCH (17:00)
[2025-02-11] MEDS ORDERED: WARFARIN SODIUM 5 MG TABLET PO SCH (17:00)
== END 2025-02-09 14:20 | disposition home health service (06) | DRG 947 ==
PROVIDERS: ADMIT Physical Medicine & Rehabilitation Pain Medicine; ATTEND Physical Medicine & Rehabilitation Pain Medicine
DX: R53.1 Weakness (principal); E43 Unspecified severe protein-calorie malnutrition; C78.01 Secondary malignant neoplasm of right lung; A04.9 Bacterial intestinal infection, unspecified; C18.9 Malignant neoplasm of colon, unspecified; C78.02 Secondary malignant neoplasm of left lung; D69.6 Thrombocytopenia, unspecified; D63.8 Anemia in other chronic diseases classified elsewhere; C78.7 Secondary malignant neoplasm of liver and intrahepatic bile duct; E66.9 Obesity, unspecified; I10 Essential (primary) hypertension; Z95.2 Presence of prosthetic heart valve; D68.59 Other primary thrombophilia; K56.7 Ileus, unspecified; E27.8 Other specified disorders of adrenal gland; D53.9 Nutritional anemia, unspecified; Z68.36 Body mass index [BMI] 36.0-36.9, adult; G47.33 Obstructive sleep apnea (adult) (pediatric); Z15.060 Genetic susceptibility to colorectal cancer; Z79.01 Long term (current) use of anticoagulants; Z85.42 Personal history of malignant neoplasm of other parts of uterus; Z90.710 Acquired absence of both cervix and uterus; Z86.718 Personal history of other venous thrombosis and embolism; Z88.5 Allergy status to narcotic agent; E66.01 Morbid (severe) obesity due to excess calories; E87.6 Hypokalemia; I89.0 Lymphedema, not elsewhere classified; K86.89 Other specified diseases of pancreas
CPT/HCPCS: 36415; 70030-TC; 71045; 83605; 83735; 84100; 85025; 85610; 87077; 87086; 94760; 97535-GO-CO; A6213; J2543; J2916; J7040